=== PATIENT | male | born 1945 | race Caucasian/White ===

== ENCOUNTER → 2018-02-13 12:21 | Outpatient (CLI) | payer MEDICARE, SELFPAY ==
--- NOTE | 2018-02-13 | TOBX_PTH ---
PATIENT: AP MILNER LOC: [facility] U#:[id number] AGE/SX: 80/M ROOM: RE02/13/[address]: Dr. Amilcar Soto DDS : 1945 BED: DIS: SPEC #: [id number] RECD: 02/13/18 11:59 STATUS: ALCIRA KARAN #: [id number] ZACHARIAH: 02/13/18 00:[address]: Amilcar Soto DEPT: SURGICAL PATHOLOGY RECD BY: Mitchell Coyle ENTERED: 02/13/18 14:18 SP TYPE: TONGUE BX LINA DR: Dr. Abdulaziz Caba MD Tissues: A - Tongue, NOS B - Tongue, NOS Procedures: Surgery Specimen Level IV HEADER OPERATION: Biopsy tongue PRE-OP DIAGNOSIS: Biopsy tongue TISSUE SUBMITTED: A. Tongue biopsy #1, B. Tongue biopsy #2 MICROSCOPIC DIAGNOSIS A. Tongue lesion #1, biopsy: Consistent with squamous cell papilloma with associated hyperkeratosis, mildly inflamed. B. Tongue lesion #2, biopsy: Hyperkeratosis and mild acanthosis. No evidence of malignancy. AM:angela 02/14/18 COMMENT Case has been reviewed in consultation with Dr. Oliveira who concurs with the above diagnosis. IDC:ROLLY MICROSCOPIC DESCRIPTION Slides are reviewed. GROSS DESCRIPTION A - Received in fixative is one container labeled with the patient's name and designated tongue #1. The specimen consists of a piece of friedman mucosal tissue measuring 0.6 x 0.3 x 0.2 cm. The specimen is inked and submitted entirely in one cassette. B - Received in fixative is one container labeled with the patient's name and designated tongue #2. The specimen consists of a piece of friedman mucosal tissue measuring 0.5 x 0.5 x 0.2 cm. The specimen is inked and submitted entirely in one cassette. / ROLLY:angela 02/13/18 TC:5 CPT: 19021 x2
== END ==
PROVIDERS: Family Provider Family Medicine; PCP Family Medicine; Referring Provider Dentist Oral and Maxillofacial Surgery; Visit Provider Dentist Oral and Maxillofacial Surgery
DX: K13.21 Leukoplakia of oral mucosa, including tongue (principal)
CPT/HCPCS: 88305

== ENCOUNTER → 2018-04-17 12:11 | Outpatient (CLI) | payer MEDICARE, SELFPAY ==
[2018-04-17 14:31] LABS: ALB/GLOB Ratio 1.1 RATIO (0.9-2.4); AST(SGOT) 16 U/L (15-37); Alanine Aminotransfer ALT/SGPT 24 U/L (16-61); Alkaline Phosphatase 69 U/L (45-117); Anion Gap 8 (5-15); BUN 13 mg/dL (7-18); BUN/Creat Ratio 13.2 RATIO (10-20); Calcium,Total 9.3 mg/dL (8.5-10.1); Chloride 104 mmol/L (98-107); Creatinine, Serum 0.99 mg/dL (0.70-1.30); EST Glomerular Filtration Rate 79 mL/min (>60); Est Glom Filt Rate - Afr Amer 96 mL/min (>60); Globulin 3.5 g/dL (2.2-4.2); Glucose 147 mg/dL (74-106); PSA,Total - Annual Screen 3.58 ng/mL (0.00-4.00); Potassium 4.4 mmol/L (3.5-5.1); Protein, Total 7.5 g/dL (6.4-8.2); Sodium Level 139 mmol/L (136-145); Thyroid Stim Hormone (TSH) 1.19 uIU/mL (0.358-3.74)
--- OUTSIDE RECORDS SUMMARY | 2018-06-12 21:25 | XMS RPT_ITS ---
:1945 Author Organization [facility] Care Team Providers Name Role Phone Amilcar Soto Attending Unavailable Amilcar Soto Referring Unavailable Abdulaziz Caba Primary Care Unavailable Abdulaziz Caba Attending Unavailable Abdulaziz Caba Primary Care Unavailable PROBLEMS PROBLEMS No Problem Records FoundPROCEDURES PROCEDURES No Procedure Records FoundRESULTS RESULTS COMPREHENSIVE METABOLIC Collected: 04/17/2018 Status: F Source: [facility] 12:[address] [facility] REPOSITORY TYPE CODE TESTS RESULT OUT OF RANGE REFERENCE UNITS LAB L501.0100 74-106 mg/dL High GLU 147 Result Comment: Fasting Glucose result greater than or equal to 126 mg/dL suggests DIABETES MELLITUS per A.D.A. criteria. Please note revised GLUCOSE reference range effective 2017. LAB L501.1000 7-18 mg/dL Normal BUN 13 LAB L501.1100 0.70-1.30 mg/dL Normal CREAT,SERUM 0.99 Result Comment: The validity of the calculated GFR AND GFRAA in patients over 70 years has not been determined. Clinical correlation is essential. LAB L501.1110 >60 mL/min Normal EST GFR 79 Result Comment: Non- GFR Calc LAB L501.1115 >60 mL/min Normal EST GFR - AA 96 Result Comment: GFR Calc LAB L501.1300 10-20 RATIO Normal BUN/CRE 13.2 LAB L501.1500 6.4-8.2 g/dL T Normal PROT 7.5 LAB L501.1800 3.2-5.0 g/dL Normal ALB 4.0 LAB L501.1950 2.2-4.2 g/dL Normal GLOB 3.5 LAB L501.2000 0.9-2.4 RATIO Normal A/G 1.1 LAB L501.2200 8.5-10.1 mg/dL CA Normal 9.3 LAB L501.4100 15-37 U/L Normal AST 16 LAB L501.4305 45-117 U/L Normal ALK P 69 LAB L501.4405 16-61 U/L Normal ALT 24 LAB L501.4600 0.20-1.00 mg/dL T Normal BILI 0.90 LAB L501.5300 136-145 mmol/L NA Normal 139 LAB L501.5600 3.5-5.1 mmol/L K Normal 4.4 LAB L501.5900 98-107 mmol/L CL Normal 104 LAB L501.6100 21.0-32.0 mmol/L Normal CO2 27.0 LAB L501.6200 5-15 Normal GAP 8 Performed By: #### L500.4050, L501.9520, L501.9910 #### [facility] [address] [place], [place], [address] THYROID STIM HORMONE Collected: 04/17/2018 Status: F Source: [facility] ([facility]) 12:[address] [facility] REPOSITORY TYPE CODE TESTS RESULT OUT OF RANGE REFERENCE UNITS LAB L501.9520 0.358-3.74 uIU/mL Normal TSH 1.19 Performed By: #### L500.4050, L501.9520, L501.9910 #### [facility] [address] [place], [address] PSA,TOTAL - ANNUAL Collected: 04/17/2018 Status: F Source: [facility] SCREEN 12:[address] [facility] REPOSITORY TYPE CODE TESTS RESULT OUT OF RANGE REFERENCE UNITS LAB L501.9910 0.00-4.00 ng/mL Normal PSA,TOT 3.58 SCREEN Result Comment: This test was performed using the TPSA assay method for the [employer] chemistry system. Values obtained with different assay methods cannot be used interchangably. When changing PSA assays in the course of monitoring a patient, additional sequential testing should be carried out to confirm baseline values. Performed By: #### L500.4050, L501.9520, L501.9910 #### [facility] [address] [place], [place], [address] TONGUE BIOPSY Observed: 02/13/2018 Status: F Source: [facility] 12:[address] [facility] REPOSITORY Patient: AP MILNER : 1945 (73/M) Acct Num: [id number] Phys: Alfiewayne MARIELAS,Amilcar Unit Num: [id number] Loc: LABSPEC Specimen: [id number] Received: 02/13/18 - 1159 Spec Type: TONGUE BX TISSUES 1 TISSUES: A. Tongue, NOS B. Tongue, NOS COMMENT Case has been reviewed in consultation with Dr. Oliveira who concurs with the above diagnosis. IDC:ROLLY GROSS DESCRIPTION A - Received in fixative is one container labeled with the patient's name and designated tongue #1. The specimen consists of a piece of friedman mucosal tissue measuring 0.6 x 0.3 x 0.2 cm. The specimen is inked and submitted entirely in one cassette. B - Received in fixative is one container labeled with the patient's name and designated tongue #2. The specimen consists of a piece of friedman mucosal tissue measuring 0.5 x 0.5 x 0.2 cm. The specimen is inked and submitted entirely in one cassette. / SJ:angela 02/13/18 TC:5 CPT: 95360 x2 HEADER OPERATION: Biopsy tongue PRE-OP DIAGNOSIS: Biopsy tongue TISSUE SUBMITTED: A. Tongue biopsy #1, B. Tongue biopsy #2 MICROSCOPIC DESCRIPTION Slides are reviewed. MICROSCOPIC DIAGNOSIS A. Tongue lesion #1, biopsy: Consistent with squamous cell papilloma with associated hyperkeratosis, mildly inflamed. B. Tongue lesion #2, biopsy: Hyperkeratosis and mild acanthosis. No evidence of malignancy. AM:angela 02/14/18 Signed Xu Jessica 02/14/18 <signature on file> Performed By: #### PTOBX #### [facility] [address] [place], [address] ALLERGIES ALLERGIES No Allergies Records FoundENCOUNTERS ENCOUNTERS ADMIT/DISCHARGE ACCOUNT ADMITTING ENCOUNTER LOCATION SOURCE NUMBER CLASS 04/17/2018 [id number] Ambulatory [place] Theresa 2 [facility] ing:MFPLAB Repository 02/13/2018 [id number] Ambulatory [place] Theresa 0 [facility] ing:LABSPEC Repository PAYERS PAYERS ENCOUNTER GUARANTOR PAYER SUBSCRIBER SOURCE 04/17/2018 [facility] Primary AP Cardenas [id number] [place]: [employer] [facility] C[facility] [id number] [facility] [place] Repository [id number]: (330) Number: [phone] () [id number] Date: [place], [place] [address]EL: 04/17/2018 Secondary NOT GIVENUNK Theresa Insurance:SELF PAY [facility] Number: Effective Repository Date:2018-04-17 02/13/2018 [facility] Primary AP Cardenas [id number] Insurance:[place]: [employer] [place]URE C[id number] Repository [address]Nar: (330) Number: [phone] () [id number] Date: [place], [place] [address]EX: 02/13/2018 Secondary NOT GIVENUNK [place] Insurance:SELF PAY [facility] Number: Effective Repository Date:2018-02-13
== END ==
PROVIDERS: Family Provider Family Medicine; PCP Family Medicine; Visit Provider Family Medicine
DX: E11.9 Type 2 diabetes mellitus without complications (principal); Z12.5 Encounter for screening for malignant neoplasm of prostate
CPT/HCPCS: 36415; 80053; 84153; 84443; G0103

== ENCOUNTER → 2019-04-28 15:29 | Outpatient (CLI) | payer MEDICARE, SELFPAY ==
[2019-04-28 18:41] LABS: ALB/GLOB Ratio 1.1 RATIO (0.9-2.4); AST(SGOT) 12 U/L (15-37); Alanine Aminotransfer ALT/SGPT 24 U/L (16-61); Albumin, Serum 3.9 g/dL (3.2-5.0); Alkaline Phosphatase 71 U/L (45-117); Anion Gap 4 (5-15); BUN 12 mg/dL (7-18); Calcium,Total 8.9 mg/dL (8.5-10.1); Chloride 106 mmol/L (98-107); Creatinine, Serum 0.92 mg/dL (0.70-1.30); EST Glomerular Filtration Rate 86 mL/min (>60); Est Glom Filt Rate - Afr Amer 104 mL/min (>60); Globulin 3.5 g/dL (2.2-4.2); Glucose 118 mg/dL (74-106); PSA,Total - Annual Screen 3.97 ng/mL (0.00-4.00); Potassium 3.9 mmol/L (3.5-5.1); Protein, Total 7.4 g/dL (6.4-8.2); Sodium Level 139 mmol/L (136-145); Thyroid Stim Hormone (TSH) 1.14 uIU/mL (0.358-3.74)
== END ==
PROVIDERS: Family Provider Family Medicine; PCP Family Medicine; Visit Provider Family Medicine
DX: E11.9 Type 2 diabetes mellitus without complications (principal); Z12.5 Encounter for screening for malignant neoplasm of prostate
CPT/HCPCS: 80053; 84153; 84443; G0103

== ENCOUNTER → 2020-05-13 08:33 | Outpatient (CLI) | payer MEDICARE, SELFPAY ==
[2020-05-13 10:25] LABS: Vitamin B12 159 pg/mL (211-911)
[2020-05-13 10:34] LABS: ALB/GLOB Ratio 1.1 RATIO (0.9-2.4); AST(SGOT) 9 U/L (15-37); Alanine Aminotransfer ALT/SGPT 22 U/L (16-61); Albumin, Serum 3.9 g/dL (3.2-5.0); Alkaline Phosphatase 66 U/L (45-117); Anion Gap 5 (5-15); BUN 12 mg/dL (7-18); BUN/Creat Ratio 13.6 RATIO (10-20); Chloride 107 mmol/L (98-107); Cholesterol 163 mg/dL (200); Creatinine, Serum 0.88 mg/dL (0.70-1.30); EST Glomerular Filtration Rate 90 mL/min (>60); Est Glom Filt Rate - Afr Amer 109 mL/min (>60); Globulin 3.6 g/dL (2.2-4.2); Glucose 146 mg/dL (74-106); High Density Lipoprotein 42 mg/dL; PSA,Total - Annual Screen 3.58 ng/mL (0.00-4.00); Potassium 4.2 mmol/L (3.5-5.1); Protein, Total 7.5 g/dL (6.4-8.2); Sodium Level 139 mmol/L (136-145); Thyroid Stim Hormone (TSH) 1.72 uIU/mL (0.358-3.74); Triglycerides 119 mg/dL; Very Low Density Lipoprotein 24 mg/dL (5-40)
== END ==
PROVIDERS: PCP Family Medicine; Referring Provider Family Medicine; Visit Provider Family Medicine
DX: E11.9 Type 2 diabetes mellitus without complications (principal); Z12.5 Encounter for screening for malignant neoplasm of prostate
CPT/HCPCS: 36415; 80053; 80061; 82607; 84153; 84443; G0103

== ENCOUNTER 2021-08-08 08:51 | Outpatient (CLI) | payer MEDICARE, SELFPAY ==
[2021-08-08 10:29] LABS: ALB/GLOB Ratio 1.1 RATIO (0.9-2.4); AST(SGOT) 15 U/L (15-37); Alanine Aminotransfer ALT/SGPT 24 U/L (16-61); Alkaline Phosphatase 60 U/L (45-117); Anion Gap 7 (5-15); BUN 12 mg/dL (7-18); BUN/Creat Ratio 13.7 RATIO (10-20); Calcium,Total 8.9 mg/dL (8.5-10.1); Chloride 106 mmol/L (98-107); Cholesterol 146 mg/dL (200); Creatinine, Serum 0.87 mg/dL (0.70-1.30); EST Glomerular Filtration Rate 91 mL/min (>60); Est Glom Filt Rate - Afr Amer 110 mL/min (>60); Globulin 3.5 g/dL (2.2-4.2); Glucose 126 mg/dL (74-106); High Density Lipoprotein 39 mg/dL; PSA,Total - Annual Screen 3.42 ng/mL (0.00-4.00); Potassium 3.9 mmol/L (3.5-5.1); Protein, Total 7.5 g/dL (6.4-8.2); Sodium Level 139 mmol/L (136-145); Triglycerides 96 mg/dL; Very Low Density Lipoprotein 19 mg/dL (5-40)
[2021-08-08 17:35] LABS: Vitamin B12 451 pg/mL (211-911)
== END 2021-08-08 23:59 | disposition home or self-care (01) ==
LOC: MFPLAB 08:52
PROVIDERS: PCP Family Medicine; Referring Provider Family Medicine; Visit Provider Family Medicine
DX: E11.9 Type 2 diabetes mellitus without complications (principal); Z12.5 Encounter for screening for malignant neoplasm of prostate
CPT/HCPCS: 36415; 80053; 80061; 82607; 84153; G0103

== ENCOUNTER → 2022-08-10 | Outpatient (CLI) | payer MEDICARE, SELFPAY ==
[2022-08-10 13:00] LABS: Vitamin B12 576 pg/mL (211-911)
[2022-08-10 13:15] LABS: ALB/GLOB Ratio 1.1 RATIO (0.9-2.4); AST(SGOT) 17 U/L (15-37); Alanine Aminotransfer ALT/SGPT 23 U/L (16-61); Albumin, Serum 3.8 g/dL (3.2-5.0); Alkaline Phosphatase 59 U/L (45-117); Anion Gap 10 (5-15); BUN 17 mg/dL (7-18); BUN/Creat Ratio 19.5 RATIO (10-20); Calcium,Total 9.3 mg/dL (8.5-10.1); Chloride 106 mmol/L (98-107); Cholesterol 145 mg/dL (200); Creatinine, Serum 0.87 mg/dL (0.70-1.30); EST Glomerular Filtration Rate 90 mL/min (>60); Est Glom Filt Rate - Afr Amer 109 mL/min (>60); Globulin 3.6 g/dL (2.2-4.2); Glucose 121 mg/dL (74-106); High Density Lipoprotein 49 mg/dL; PSA,Total - Annual Screen 4.98 ng/mL (0.00-4.00); Potassium 3.8 mmol/L (3.5-5.1); Protein, Total 7.4 g/dL (6.4-8.2); Sodium Level 140 mmol/L (136-145); Thyroid Stim Hormone (TSH) 1.51 uIU/mL (0.358-3.74); Triglycerides 58 mg/dL; Very Low Density Lipoprotein 12 mg/dL (5-40)
== END | disposition home or self-care (01) ==
LOC: MFPLAB 09:22
PROVIDERS: PCP Family Medicine; Referring Provider Family Medicine; Visit Provider Family Medicine
DX: E11.319 Type 2 diabetes mellitus with unspecified diabetic retinopathy without macular edema (principal); Z12.5 Encounter for screening for malignant neoplasm of prostate
CPT/HCPCS: 36415; 80053; 80061; 82607; 84153; 84443; G0103

== ENCOUNTER → 2023-01-09 | Outpatient (CLI) | payer MEDICARE, SELFPAY ==
[2023-01-10 13:08] LABS: PSA, Free 1.06 ng/mL; PSA, Free % 23.8 % (.)
== END | disposition home or self-care (01) ==
LOC: MFPLAB 08:45
PROVIDERS: PCP Family Medicine; Visit Provider Family Medicine
DX: R97.20 Elevated prostate specific antigen [PSA] (principal)
CPT/HCPCS: 36415; 84153; 84154

== ENCOUNTER → 2023-08-21 | Outpatient (CLI) | payer MEDICARE, SELFPAY ==
[2023-08-21 13:08] LABS: Vitamin B12 514 pg/mL (211-911)
[2023-08-21 13:19] LABS: AST(SGOT) 16 U/L (15-37); Alanine Aminotransfer ALT/SGPT 24 U/L (16-61); Albumin, Serum 3.6 g/dL (3.2-5.0); Alkaline Phosphatase 63 U/L (45-117); Anion Gap 7 (5-15); BUN 13 mg/dL (7-18); Calcium,Total 9.4 mg/dL (8.5-10.1); Chloride 105 mmol/L (98-107); Cholesterol 159 mg/dL (200); Creatinine, Serum 0.93 mg/dL (0.70-1.30); EST Glomerular Filtration Rate 84 mL/min (>60); Est Glom Filt Rate - Afr Amer 101 mL/min (>60); Globulin 3.7 g/dL (2.2-4.2); Glucose 152 mg/dL (74-106); High Density Lipoprotein 45 mg/dL; PSA,Total- Diagnostic 4.39 ng/mL (0.0-4.0); Potassium 4.2 mmol/L (3.5-5.1); Protein, Total 7.3 g/dL (6.4-8.2); Sodium Level 138 mmol/L (136-145); Thyroid Stim Hormone (TSH) 1.77 uIU/mL (0.358-3.74); Triglycerides 107 mg/dL; Very Low Density Lipoprotein 21 mg/dL (5-40)
== END | disposition home or self-care (01) ==
LOC: MFPLAB 09:46
PROVIDERS: PCP Family Medicine; Visit Provider Family Medicine
DX: E11.9 Type 2 diabetes mellitus without complications (principal); R97.20 Elevated prostate specific antigen [PSA]
CPT/HCPCS: 36415; 80053; 80061; 82607; 84153; 84403; 84443

== ENCOUNTER → 2024-04-28 | Outpatient (CLI) | payer MEDICARE, SELFPAY ==
[2024-04-28 11:05] LABS: Anion Gap 5 (5-15); BUN 13 mg/dL (7-18); BUN/Creat Ratio 13.1 RATIO (10-20); Calcium,Total 9.4 mg/dL (8.5-10.1); Chloride 107 mmol/L (98-107); Cholesterol 156 mg/dL (200); Creatinine, Serum 0.99 mg/dL (0.70-1.30); EST Glomerular Filtration Rate 78 mL/min (>60); Est Glom Filt Rate - Afr Amer 94 mL/min (>60); Glucose 144 mg/dL (74-106); High Density Lipoprotein 44 mg/dL; PSA,Total- Diagnostic 4.37 ng/mL (0.0-4.0); Potassium 3.8 mmol/L (3.5-5.1); Sodium Level 139 mmol/L (136-145); Triglycerides 149 mg/dL; Very Low Density Lipoprotein 30 mg/dL (5-40)
== END | disposition home or self-care (01) ==
LOC: MFPLAB 08:32
PROVIDERS: PCP Family Medicine; Referring Provider Family Medicine; Visit Provider Family Medicine
DX: E11.9 Type 2 diabetes mellitus without complications (principal); R97.20 Elevated prostate specific antigen [PSA]
CPT/HCPCS: 36415; 80048; 80061; 84153

== ENCOUNTER → 2024-09-10 | Outpatient (CLI) | payer MEDICARE, SELFPAY ==
[2024-09-10 20:53] LABS: Microalbumin,Random Urine < 12.0 mg/L (NO RANGE EST.); Microalbumin:Creatinine Ratio UNABLE TO CALCULATE mg/g CRE
--- OUTSIDE RECORDS SUMMARY | 2025-04-01 16:49 | XMS RPT_ITS | CCD ---
Author Organization [facility] Care Team Providers Care Safety Compliance Specialist Name Role Phone Abdulaziz Caba MD Primary Care Provider Abdulaziz Caba Attending Unavailable Abdulaziz Caba Referring Unavailable Abdulaziz Caba Primary Care Unavailable Abdulaziz Caba Attending Unavailable Abdulaziz Caba Referring Unavailable Abdulaziz Caba Primary Care Unavailable Allergies Allergy Classification Reported Allergen(s) Allergy Type Date of Onset Reaction(s) Facility (2 sources) Seasonal allergy Allergy to substance Other: See Comments [place] years has not been determined. Clinical correlation is essential. Serum or plasma thyroid stim ulating hormone (TSH) measurement (units/volume)Ordered By: Abdulaziz Caba on 08-21-2023 TSH Qn 1.77 uIU/mL 0.358-3.74 [facility] Serum or plasma urea nitroge n measurement (mass/volume)Ordered By: Abdulaziz Caba on 08-21-2023 Urea nitrogen [Mass/Vol] 13 mg/dL 7-18 [facility] Thin prep Papanicolaou smear with manual screeningOrdered By: Abdulaziz Caba on 08-21-2023 Thin prep Papanicolaou smear with manual screening 3.6 g/dL 3.2-5.0 [facility] Thin prep Papanicolaou smear with manual screening 16 U/L 15-37 [facility] Thin prep Papanicolaou smear with manual screening 7 5-15 [facility] No Panel InformationOrdered By: Rob Caba on 01-09-2023 Percent Free Prostate Specific Ag 1.06 ng/mL N/A [facility] Comment on above: Cecilia ECLIA methodol ogy. Prostate Specific Ag, Ultra-Sensitv 4.460 ng/mL 0.000-4.000 [facility] Comment on above: Cecilia ECLIA methodol ogy.According to the [place] [employer], Serum PSAshould decrease and remain at undetectable levels afterradical prostatectomy. The AUA defines biochemicalrecurrence as an initial PSA value 0.200 ng/mL or greaterfollowed by a subsequent confirmatory PSA value 0.200 ng/mLor greater. Values obtained with different assay methods orkits cannot be used interchangeably. Results cannot beinterpreted as absolute evidence of the presence or absenceof malignant disease. Serum or plasma free prostat e specific antigen/total prostate specific antigen ratioOrdered By: Rob Caba on 01-09-2023 Free PSA/Total PSA [Mass fraction] 23.8 % . [facility] Comment on above: The table below list s the probability of prostate cancer formen with non-suspicious JOSHUA results and total PSA between4 and 10 ng/mL, by patient age (Bud et al, PATSY 1998,279:1542). % Free PSA 50-64 yr 65-75 yr 0.00-10.00% 56% 55% 10.01-15.00% 24% 35% 15.01-20.00% 17% 23% 20.01-25.00% 10% 20% >25.00% 5% 9%Please note: Bud et al did not make specific recommendations regarding the use of percent free PSA for any other population of men.Performed at: [facility] [id number] Director: Amilcar Foster PhD, Phone: [phone] Basophil percentageOrdered B y: Dr. Caba on 08-10-2022 Bilirubin [Mass/Vol] 0.50 mg/dL 0.20-1.00 [facility] Comment on above: For patients on eltr ombopag therapy, use of Dimension [place] TBIL is not recommended. Chloride [Moles/Vol] 106 mmol/L 98-107 [facility] Cholesterol [Mass/Vol] 145 mg/dL <200 [facility] Comment on above: <200 mg/dL Desirable 200-240 mg/dL Borderline >240 mg/dL High Risk Glucose [Mass/Vol] 121 mg/dL 74-106 [facility] Comment on above: Fasting Glucose resu lt from 100 to 125 mg/dL suggests IMPAIRED HOMEOSTASIS per A.D.A. criteria. Potassium [Moles/Vol] 3.8 mmol/L 3.5-5.[address] [facility] Protein [Mass/Vol] 7.4 g/dL 6.4-8.2 [facility] Sodium [Moles/Vol] 140 mmol/L 136-145 [facility] Triglyceride [Mass/Vol] 58 mg/dL <199 [facility] Comment on above: The drugs N-Acetylcy steine and Metamizole may falsely depress this assay.Serum Triglycerides Reference Interval Normal <150 mg/dL Borderline high 150 - 199 mg/dL High 200 - 499 mg/dL Very High > or = 500 mg/dL Laboratory - Chemistry and C hemistry - challengeOrdered By: Dr. Caba on 08-10-2022 ALP [Catalytic activity/Vol] 59 U/L 45-117 [facility] ALT [Catalytic activity/Vol] 23 U/L 16-61 [facility] CO2 [Moles/Vol] 24.0 mmol/L 21.0-32.0 [facility] Cobalamin (Vitamin B12) [Mass/Vol] 576 pg/mL 211-911 [facility] Globulin (S) [Mass/Vol] 3.6 g/dL 2.2-4.2 [facility] Urea nitrogen/Creatinine [Mass ratio] 19.5 mg/mg 10-20 [facility] No Panel InformationOrdered By: Dr. Caba on 08-10-2022 Estimated GFR (MDRD) Amer 109 mL/min >60 [facility] Comment on above: GFR Calc Estimated GFR (MDRD) Non-Af Amer 90 mL/min >60 [facility] Comment on above: Non- GFR Calc Prostate Specific Antigen Screen 4.98 ng/mL 0.00-4.00 [facility] Comment on above: This test was perfor med using the TPSA assay method for the[facility] chemistry system. Values obtained with differentassay methods cannot be used interchangably.When changing PSA assays in the course of monitoring apatient, additional sequential testing should be carriedout to confirm baseline values. Thyroid Stimulating Hormone (TSH) 1.51 uIU/mL 0.358-3.74 [facility] Serum or plasma albumin bethanie urement (mass/volume)Ordered By: Dr. Caba on 08-10-2022 Albumin [Mass/Vol] 3.8 g/dL 3.2-5.0 [facility] Serum or plasma albumin/glob ulin mass ratioOrdered By: Dr. Caba on 08-10-2022 Albumin/Globulin [Mass ratio] 1.1 {ratio} 0.9-2.4 [facility] Serum or plasma calcium bethanie urement (mass/volume)Ordered By: Dr. Caba on 08-10-2022 Calcium [Mass/Vol] 9.3 mg/dL 8.5-10.1 [facility] Serum or plasma cholesterol in HDL measurement (mass/volume)Ordered By: Dr. Caba on 08-10-2022 Cholesterol in HDL [Mass/Vol] 49 mg/dL >40 [facility] Comment on above: The drugs N-Acetylcy steine and Metamizole may falsely depress this assay. Reference Range HDL <40 mg/dL Low HDL Cholesterol HDL >or= 60 mg/dL High HDL Cholesterol Serum or plasma cholesterol in VLDL measurement (mass/volume)Ordered By: Dr. Caba on 08-10-2022 Cholesterol in VLDL [Mass/Vol] 12 mg/dL 5-40 [facility] Serum or plasma creatinine m easurement (mass/volume)Ordered By: Dr. Caba on 08-10-2022 Creatinine [Mass/Vol] 0.87 mg/dL 0.70-1.[address] [facility] Comment on above: The validity of the calculated GFR & GFRAA in patients over 70 years has not been determined. Clinical correlation is essential. Serum or plasma low density lipoprotein (LDL) cholesterol measurement (mass/volume)Ordered By: Dr. Caba on 08-10-2022 Cholesterol in LDL [Mass/Vol] 84 mg/dL 0-130 [facility] Serum or plasma urea nitroge n measurement (mass/volume)Ordered By: Dr. Caba on 08-10-2022 Urea nitrogen [Mass/Vol] 17 mg/dL 7-18 [facility] Thin prep Papanicolaou smear with manual screeningOrdered By: Dr. Caba on 08-10-2022 Thin prep Papanicolaou smear with manual screening 17 U/L 15-37 [facility] Thin prep Papanicolaou smear with manual screening 10 5-15 [facility] CNOVon 11-01-2021 CNOV Office Visit (GENSWS ) -------- BENOIT WEBER ([id number]) 1945 M Date Time Provider Department 11/01/21 10:00 AM BOBBI GEORGE During your visit today, we recorded the following information about you: Temperature Pulse Blood pressure Weight 98.1 degrees 83/minute 132/72 78 kg Height 1.651 m Bobbi George PA-C 11/01/2021 11:05 AM Signed FOLLOW UP VISIT - ENDOSCOPY NAME: Benoit Weber CLINIC NO.: [id number] DATE OF SERVICE: 11/01/2021 : 1945 REFERRING PHYSICIAN: Abdulaziz Caba MD Benoit is a patient I am following for screening colonoscopy and recent loose stools. Dr. Sheikh performed lower endoscopy on 10/25/21. The patient was found to have diverticulosis with otherwise normal-appearing colon. Random biopsies were taken. Pathology demonstrated: FINAL DIAGNOSIS A. Ascending colon, biopsy: - No significant pathologic change. - No evidence of lymphocytic or collagenous colitis. ? B. Descending colon, biopsy: - No significant pathologic change. - No evidence of lymphocytic or collagenous colitis. ? JRG/kr 10/26/2021 The patient notes no complaints since the procedure. He states the loose stools are intermittent and primarily aggravated with certain foods such as dairy and salads. States symptoms are not really bothering him currently and had normal BM this morning. VITALS: Blood pressure 132/72, pulse 83, temperature 36.7 ?C (98.1 ?F), height 165.1 cm (5' 5), weight 78 kg (172 lb), SpO2 98 %. General: patient is alert, cooperative, pleasant and in no acute distress On examination, the abdomen is benign. Assessment IMPRESSION: s/p colonoscopy, intermittent loose stools, normal biopsies PLAN: The operative findings and pathology report were reviewed with the patient, and the patient has had the opportunity to ask questions and have questions answered. If the patient notes any problems or changes in bowel function, the patient should contact me immediately. Otherwise I recommend follow up endoscopy in 10 years. HM updated and recall letter generated. Patient verbalized understanding of all above and agreed with the plan Diagnoses: (K57.90) Diverticulosis (primary encounter diagnosis) (R19.5) Loose stools I spent a total of 23 minutes on the date of the service which included preparing to see the patient, [id number] patient care, completing clinical documentation, obtaining and/or reviewing separately obtained history, performing a medically appropriate examination, independently interpreting results (not separately reported) and communicating results to the patient/family/caregiver . ___ BURT Chen PA-C 11/01/2021 10:27 AM Signed -Your random biopsies returned as normal colon tissue, no evidence of colitis -Recommend fiber and probiotic to help regulate stools -Follow up if symptoms worsen or persist The following instructions are important for you related to your office visit today with the [facility]. INSTRUCTIONS FOR DIVERTICULA I recommend that you continue on a high-fiber diet. Avoidance of seeds is not necessary in general. Recent studies have demonstrated that seeds do not increase you risk of developing diverticulitis. If specific foods tend to cause discomfort, those should be avoided. Signs of diverticulitis (inflammation of diverticulosis) include - abdominal distention, fever, abdominal pain typically in the left lower quadrant, and changes of bowel habits. If these symptoms appear, you are instructed to contact our office immediately. If you note any additional difficulties or concerns, you should contact our office immediately. If you note any additional difficulties, questions, or concerns, you should contact our office immediately @ [phone] and ask to be transferred to the General Surgery department. Referring Provider: JOSE SHEIKH [[id number]] Allergies As of Date: 11/01/2021 Noted Allergy Reaction SEASONAL ALLERGIES 10/14/2021 14 - Other: See Comments Date Reviewed: 11/01/2021 Reviewed by: Stacy Alexandre LPN - Fully Assessed Reason for Visit: Follow Up [171] Cmt: colonoscopy Primary Visit Diagnosis:Diverticulosis [K57.90] Other Visit Diagnosis:Loose stools [R19.5] Prescriptions as of 11/01/2021 - metFORMIN ER (FORTAMET) 1,000 mg 24 hr tablet Take 1,000 mg by mouth twice daily before meals. Metformin not ER - glimepiride (AMARYL) 4 mg tablet Take 4 mg by mouth twice daily with meals. - betamethasone dipropionate (DIPROSONE) 0.05 % cream Apply to affected area as needed. - Fluorouracil 0.5 % cream Apply to affected area as needed. - VITAMIN E ACETATE ORAL Take 1 capsule by mouth twice daily. - cyanocobalamin (VITAMIN B-12) 1,000 mcg tab Take 1,000 mcg by mouth once daily. - ascorbic acid, vitamin C, (VITAMIN C) 500 mg tablet Edson (more content not included)... Normal [facility] COLONOSCOPY SCREENINGon [facility] GLUCOSE, BLOOD (POC)on 10-25 Glucose [Mass/Vol] 177 mg/dL Abnormal 74 - 99 mg/dL [facility] HISTORY PHYSICALon HISTORY PHYSICAL HNO ID: [id number] Author: Jose Sheikh MD Service: General Surgery Author Type: Physician Type: HANDP Filed: 10/25/2021 11:15 AM Note Text: PROCEDURAL SEDATION HISTORY AND PHYSICAL EXAM SERVICE DATE: 10/25/2021 SERVICE TIME: 11:14 AM Subjective HPI: This is a 76 year old male who presents for screening colonoscopy - HE now notes diarrhea/loose stools 4-5 times a week. His colonoscopy was normal in 2011 PAST ANESTHESIA HISTORY: No history of adverse event PAST MEDICAL HISTORY Diagnosis Date - Arthritis - Diabetes mellitus Type 2 - Diabetic retinopathy (HCC) - Hypercholesterolemia - Hypertension - Nummular eczema PAST SURGICAL HISTORY Procedure Laterality Date - COLONOSCOPY FLX DX W/COLLJ SPEC WHEN PFRMD 09/05/2011 normal 10 year follow up - EYE SURGERY HX - FOREIGN BODY - EYE - PERIODONTAL MAINTENANCE - REMV CATARACT EXTRACAP,INSERT LENS Right 2016 Prior to Admission medications as of 10/25/21 0949 Medication Sig Last Dose Taking metFORMIN ER (FORTAMET) 1,000 mg 24 hr tablet Take 1,000 mg by mouth twice daily before meals. 10/24/2021 at Unknown time Yes glimepiride (AMARYL) 4 mg tablet Take 4 mg by mouth twice daily with meals. 10/24/2021 at Unknown time Yes betamethasone dipropionate (DIPROSONE) 0.05 % cream Apply to affected area as needed. 10/02/2021 Fluorouracil 0.5 % cream Apply to affected area as needed. Unknown at Unknown time VITAMIN E ACETATE ORAL Take 1 capsule by mouth twice daily. 10/02/2021 cyanocobalamin (VITAMIN B-12) 1,000 mcg tab Take 1,000 mcg by mouth once daily. 10/20/2021 ascorbic acid, vitamin C, (VITAMIN C) 500 mg tablet Take 500 mg by mouth once daily. 10/20/2021 amLODIPine (NORVASC) 5 mg ORAL tablet Take 1 tablet by mouth once daily. metFORMIN 500 mg ORAL tablet Take 1 tablet by mouth twice daily. glimepiride (AMARYL) 4 mg ORAL tablet Take 1 tablet by mouth once daily. rosuvastatin (CRESTOR) 5 mg ORAL tablet Take 1 tablet by mouth daily at bedtime. aspirin, enteric coated 325 mg ORAL EC tablet Take 1 tablet by mouth once daily. ALLERGIES Allergen Reactions - Seasonal Allergies Other: See Comments Objective PHYSICAL EXAM: GENERAL: Alert, no distress, cooperative EYES: PERRLA, EOMI OROPHARYNX: Lips, mucosa, and tongue normal. Teeth and gums normal. Oropharynx normal. ABDOMEN: Abdomen soft, non-tender, BS normal, No masses or organomegaly AIRWAY: Airway Visualization of Uvula: Yes Mouth opening greater than 2 fingerbreadths: Yes Neck Full Range of Motion: Yes LUNGS: Lungs clear to auscultation CARDIAC: Regular rhythm,Regular rate Assessment/Plan ASA Class: ASA Class:: Patient with mild systemic disease Active Problems: * No active hospital problems. * Resolved Problems: * No resolved hospital problems. * Medication and Non-Pharmacologic VTE Prophylaxis/Anticoagulan ts VTE Prophylaxis: VTE prophylaxis appropriate Provisional Diagnosis/Treatment Plan: SEDATION GOAL: Moderate SIGNATURE: Jose Sheikh MD PATIENT NAME: Benoit Weber DATE: October 25, 2021 TIME: 11:14 AM Normal [facility] SURGICAL PATHOLOGYon 022 CASE REPORT Normal [facility] Comment on above: Order Comment: Speci men Type: TISSUE SPECIMEN Ordering Facility: [facility] Address: [address] [place] [address] Result Comment: Surg ica Pathology Report Case: [id number] Authorizing Provider: Jose Sheikh MD Collected: 10/25/2021 11:45 AM Ordering Location: Ambulatory Surgery Received: 10/25/2021 02:14 PM Pathologist: Waldemar Huerta MD Specimens: A) - ASCENDING COLON BIOPSY, RANDOM Acending Colon Bx's x3 B) - DESCENDING COLON BIOPSY, RANDOM decending colon bx x3 Performed By: #### S #### [facility] CLIA [id number] [address] [place] [address] OF [place] FINAL DIAGNOSIS Normal [facility] Comment on above: Order Comment: Speci men Type: TISSUE SPECIMEN Ordering Facility: [facility] Address: [address] [place] [address] Result Comment: A. A scending colon, biopsy: - No significant pathologic change. - No evidence of lymphocytic or collagenous colitis. B. Descending colon, biopsy: - No significant pathologic change. - No evidence of lymphocytic or collagenous colitis. JRG/beckie 10/26/2021 Performed By: #### S #### [facility] CLIA [id number] [address] [place] [address] [place] FINAL PERFORMING LAB Normal [facility] Comment on above: Order Comment: Speci men Type: TISSUE SPECIMEN Ordering Facility: [facility] Address: [address] [place] [address] Result Comment: Diag nostic interpretation performed at [facility], [address] [place] [address] CLIA# [id number] Physical Medicine Teacher: Ab Bajwa M.D. Performed By: #### S #### [facility] CLIA [id number] [address] [place] [address] [place] GROSS DESCRIPTION Normal [facility] Comment on above: Order Comment: Speci men Type: TISSUE SPECIMEN Ordering Facility: [facility] [place] [address] Result Comment: A. A SCENDING COLON BIOPSY. Received in formalin are multiple pieces of friedman, soft tissue aggregating to 1.5 x 0.3 x 0.2 cm. Totally submitted in one cassette. B. DESCENDING COLON BIOPSY. Received in formalin are multiple pieces of friedman, soft tissue aggregating to 1.2 x 0.2 x 0.2 cm. Totally submitted in one cassette. Gross examination performed at [facility], [address] [place] [address], [place] [id number] TTN 10/25/2021 10:40 PM Performed By: #### S #### [facility] CLIA [id number] [address] [place] [address] [place]K [id number] [id number] [facility] CNPNon 08-19-2021 CNPN Telephone (GENSWS) -------- BENOIT WEBER ([id number]) 1945 M Date Time Provider Department 08/19/21 JOSE SHEIKH During your visit today, we recorded the following information about you: Vidhya Brown 08/23/2021 1:41 PM Addendum 10/25/2021 COLON ASC Florencio Called patient to schedule colonoscopy with Dr. Sheikh per Dr. Caba referral in scanned documents. LV to give our office a call back. Florencio is booking until the end of September beginning of October. Last colon was 08/2011 with Florencio Brown 08/23/2021 1:42 PM Signed Patient would like prep Golytley sent to the [facility] pharmacy in [facility] 10/14/2021 10:[address] Sheikh , PANTERA for open access. Please see referral in scanned documents with Dr Sheikh's permission for open access Igor Diaz Allergies As of Date: 08/19/2021 (No Known Allergies) Date Reviewed: 09/18/2011 Reviewed by: Tana Raygoza Rn - Fully Assessed Reason for Visit: 10/25/2021 COLON ASC [Other] Primary Visit Diagnosis:Screening for colon cancer [Z12.11] Order(s):COLONOSCOPY SCREENING [GI51] Order #: [id number] FUTURE [] peg 3350-Electrolytes (GOLYTELY) 236-22.74-6.74 -5.86 gram suspensionTake 4,000 mL by mouth one time only for 1 dose.Disp: 1 EachRfl: 0 Prescriptions as of 10/14/2021 - amLODIPine (NORVASC) 5 mg ORAL tablet Take 1 tablet by mouth once daily. - metFORMIN 500 mg ORAL tablet Take 1 tablet by mouth twice daily. - glimepiride (AMARYL) 4 mg ORAL tablet Take 1 tablet by mouth once daily. - rosuvastatin (CRESTOR) 5 mg ORAL tablet Take 1 tablet by mouth daily at bedtime. - aspirin, enteric coated 325 mg ORAL EC tablet Take 1 tablet by mouth once daily. Problem List As Of Date 08/19/2021 Noted Resolved Special screening for malignant neoplasms, colo*07/24/2011 Unspecified constipation [K59.00] 07/24/2011 Prescriptions ordered this encounter Disp Refills Start End PEG 3350-ELECTROLYTES 236 GRAM-22.74* 1 Ea* 0 08/24/2021 08/24/2021 Route: ORAL Sig: Take 4,000 mL by mouth one time only for 1 dose. Encounter Status:Closed by JOSE SHEIKH on 08/24/21 [facility] Basophil percentageon 2021 Bilirubin [Mass/Vol] 0.50 mg/dL 0.20-1.00 [facility] Work Phone: Comment on above: For patients on eltr ombopag therapy, use of Dimension [place] TBIL is not recommended. Chloride [Moles/Vol] 106 mmol/L 98-107 [facility] Work Phone: Cholesterol [Mass/Vol] 146 mg/dL <200 [facility] Work Phone: [phone] Comment on above: <200 mg/dL Desirable 200-240 mg/dL Borderline >240 mg/dL High Risk Glucose [Mass/Vol] 126 mg/dL 74-106 [facility] Work Phone: [phone] Comment on above: Fasting Glucose resu lt greater than or equal to 126 mg/dL suggests DIABETES MELLITUS per A.D.A. criteria. Potassium [Moles/Vol] 3.9 mmol/L 3.5-5.[address] [facility] Work Phone: [phone] Protein [Mass/Vol] 7.5 g/dL 6.4-8.2 [facility] Work Phone: [phone] Sodium [Moles/Vol] 139 mmol/L 136-145 [facility] Work Phone: [phone] Triglyceride [Mass/Vol] 96 mg/dL [facility] Work Phone: [phone] Comment on above: The drugs N-Acetylcy steine and Metamizole may falsely depress this assay.Serum Triglycerides Reference Interval Normal <150 mg/dL Borderline high 150 - 199 mg/dL High 200 - 499 mg/dL Very High > or = 500 mg/dL Laboratory - Chemistry and C hemistry - challengeon 08-08-2021 ALP [Catalytic activity/Vol] 60 U/L 45-117 [facility] Work Phone: [phone] ALT [Catalytic activity/Vol] 24 U/L 16-61 [facility] Work Phone: [phone] CO2 [Moles/Vol] 26.0 mmol/L 21.0-32.0 [facility] Work Phone: [phone] Cobalamin (Vitamin B12) [Mass/Vol] 451 pg/mL 211-911 [facility] Work Phone: [phone] Globulin (S) [Mass/Vol] 3.5 g/dL 2.2-4.2 [facility] Work Phone: [phone] Urea nitrogen/Creatinine [Mass ratio] 13.7 mg/mg 10-20 [facility] Work Phone: [phone] No Panel Informationon 08-08 Estimated GFR (MDRD) Amer 110 mL/min >60 [facility] Work Phone: Comment on above: GFR Calc Estimated GFR (MDRD) Non-Af Amer 91 mL/min >60 [facility] Work Phone: Comment on above: Non- GFR Calc Prostate Specific Antigen Screen 3.42 ng/mL 0.00-4.00 [facility] Work Phone: Comment on above: This test was perfor med using the TPSA assay method for [employer] chemistry system. Values obtained with differentassay methods cannot be used interchangably.When changing PSA assays in the course of monitoring apatient, additional sequential testing should be carriedout to confirm baseline values. Serum or plasma albumin bethanie urement (mass/volume)on 08-08-2021 Albumin [Mass/Vol] 4.0 g/dL 3.2-5.0 [facility] Work Phone: Serum or plasma albumin/glob ulin mass ratioon 08-08-2021 Albumin/Globulin [Mass ratio] 1.1 {ratio} 0.9-2.4 [facility] Work Phone: Serum or plasma calcium bethanie urement (mass/volume)on 08-08-2021 Calcium [Mass/Vol] 8.9 mg/dL 8.5-10.1 [facility] Work Phone: Serum or plasma cholesterol in HDL measurement (mass/volume)on 08-08-2021 Cholesterol in HDL [Mass/Vol] 39 mg/dL [facility] Work Phone: Comment on above: The drugs N-Acetylcy steine and Metamizole may falsely depress this assay. Reference Range HDL <40 mg/dL Low HDL Cholesterol HDL >or= 60 mg/dL High HDL Cholesterol Serum or plasma cholesterol in VLDL measurement (mass/volume)on 08-08-2021 Cholesterol in VLDL [Mass/Vol] 19 mg/dL 5-40 [facility] Work Phone: [phone] Serum or plasma creatinine m easurement (mass/volume)on 03-21-2022 Creatinine [Mass/Vol] 0.87 mg/dL 0.70-1.[address] [facility] Work Phone: Comment on above: The validity of the calculated GFR & GFRAA in patients over 70 years has not been determined. Clinical correlation is essential. Serum or plasma low density lipoprotein (LDL) cholesterol measurement (mass/volume)on 08-08-2021 Cholesterol in LDL [Mass/Vol] 88 mg/dL 0-130 [facility] Work Phone: Serum or plasma urea nitroge n measurement (mass/volume)on 08-08-2021 Urea nitrogen [Mass/Vol] 12 mg/dL 7-18 [facility] Work Phone: Thin prep Papanicolaou smear with manual screeningon 08-08-2021 Thin prep Papanicolaou smear with manual screening 15 U/L 15-37 [facility] Work Phone: Thin prep Papanicolaou smear with manual screening 7 5-15 [facility] Work Phone: Vital Signs Date Time Vital Sign Value Performing Clinician Teresai tejaly 11-01-2021 10:12-0400 Body height 165.1 cm Bobbi [employer] Work Phone: [facility] 11-01-2021 10:12-0400 Body temperature 98.1 [degF] Bobbi Bar Saint PA-C Work Phone: [facility] 11-01-2021 10:12-0400 Body weight 78.02 kg Bobbi Ariel PA-C Work Phone: [facility] 11-01-2021 10:12-0400 Diastolic blood pressure 72 mm[Hg] Bobbi Ariel PA-C Work Phone: [facility] 11-01-2021 10:12-0400 Heart rate 83 /min Bobbi [place] PA-C Work Phone: [facility] 11-01-2021 10:12-0400 SaO2% (BldA) [Mass fraction] 98 % Bobbi Ariel PA-C Work Phone: [facility] 11-01-2021 10:12-0400 Systolic blood pressure 132 mm[Hg] Bobbi George PA-C Work Phone: [facility] 10-25-2021 12:15-0400 Diastolic blood pressure 76 mm[Hg] Jose Sheikh MD Work Phone: [facility] 10-25-2021 12:15-0400 Heart rate 69 /min Jose Sheikh MD Work Phone: [facility] 10-25-2021 12:15-0400 Respiratory rate 16 /min Jose Sheikh MD Work Phone: [facility] 10-25-2021 12:15-0400 SaO2% (BldA) [Mass fraction] 96 % Jose Sheikh MD Work Phone: [facility] 10-25-2021 12:15-0400 Systolic blood pressure 129 mm[Hg] Jose Sheikh MD Work Phone: [facility] 10-25-2021 10:27-0400 Body temperature 97.3 [degF] Jose Sheikh MD Work Phone: [facility] 10-25-2021 10:27-0400 Body weight 86.4 kg Jose Sheikh MD Work Phone: [facility] Encounters Encounter Date Encounter Type Care Provider Facility Start: 10-21-2024 Encounter for genera l adult medical examination without abnormal findings Abdulaziz Caba [facility] Start: 09-10-2024 ambulatory Abdulaziz Caba Faci lity:[facility] Start: 04-28-2024 End: 04-28-2024 ambulatory Abdulaziz Caba Facility:[facility] Start: 08-21-2023 End: 08-21-2023 ambulatory [facility] Work Phone: Start: 08-21-2023 End: 08-21-2023 Patient encounter procedure [facility] Start: 01-09-2023 End: 01-09-2023 ambulatory [facility] Work Phone: Start: 01-09-2023 End: 01-09-2023 Patient encounter procedure [facility] Start: 08-10-2022 End: 08-10-2022 ambulatory [facility] Work Phone: Start: 08-10-2022 End: 08-10-2022 Patient encounter procedure [facility] Start: 11-01-2021 End: 11-01-2021 Patient encounter procedure Bobbi George PA-C Work Phone: General Surgery Comment on above: Diverticulosis (Prim vini Dx); Loose stools Start: 10-25-2021 End: 10-25-2021 Subsequent hospital visit by physician Jose Sheikh MD Work Phone: Ambulatory Surgery Comment on above: Screening for colon cancer [Z12.11] Start: 08-19-2021 Telephone encounter Jose Sheikh MD Work Phone: General Surgery Comment on above: 10/25/2021 [facility] Start: 08-08-2021 End: 08-08-2021 Patient encounter procedure [facility] Procedures Date Procedure Procedure Detail Performing Clinician Start: 10-25-2021 Colon ca scrn not hi rsk ind Jose Sheikh MD Work Phone: Start: 10-25-2021 Gluc bld gluc mntr d ev cleared fda spec home use Jose Sheikh MD Work Phone: Start: 10-25-2021 Colonoscopy Jose foster MD Work Phone: Start: 09-05-2011 Colonoscopy Jose foster MD Work Phone: Plan of Treatment Date Care Activity Detail Author Start: 10-26-2031 Colonoscopy COLONOSCOPY [facility] Start: 10-26-2031 COLORECTAL CANCER SCREENING COLORECTAL CANCER SCREENING [facility] Start: 01-19-2022 Influenza vaccination INFLUENZ A (Season Ended) [facility] Start: 09-04-2021 Colonoscopy COLONOSCOPY [facility] Start: 09-04-2021 COLORECTAL CANCER SCREENING COLORECTAL CANCER SCREENING [facility] Start: 05-21-2021 ADVANCE DIRECTIVE DISCUSSION ADVANCE DIRECTIVE DISCUSSION [facility] Start: 01-17-2012 PNEUMOCOCCAL: 65+ (1 - PCV) PNEUMOCOCCAL: 65+ (1 - PCV) [facility] Start: 01-17-2012 PNEUMOVAX AGE 65 AND OVER WITH 5YR LOOKBACK (#1) PNEUMOVAX AGE 65 AND OVER WITH 5YR LOOKBACK (#1) [facility] Start: 1997 SHINGRIX VACCINE (1 of 2) SHINGRIX VACCINE (1 of 2) [facility] Start: 01-17-1992 COLOGUARD (FIT-DNA) COLOGUARD (FIT-D NA) [facility] Start: 01-17-[address] COLONOGRAPHY [facility] Start: 01-17-1992 DIABETES SCREEN DIABETES SCREEN [facility] Start: 01-17-1992 FECAL OCCULT BLOOD FECAL OCCULT BLOO D [facility] Start: 01-17-1992 SIGMOIDOSCOPY SIGMOIDOSCOPY [facility] Start: 1982 LIPID SCREEN LIPID SCREEN [facility] Start: 1966 Urine microalbumin profile DTAP,TDAP,TD (1 - Tdap) [facility] Start: 1965 HEPATITIS C SCREENING HEPATITIS C SC REENING [facility] Start: 1959 Adult depression screening assessment DEPRESSION SCREENING [facility] Start: 01-17-1952 COVID-19 VACCINE (#1) COVID-19 VACCI NE (#1) [facility] Start: 01-17-1952 COVID-19 VACCINE (1) COVID-19 VACCIN E (1) [facility] End: 08-19-2022 Screening colonoscopy COLONOSCOPY SCREENING Endoscopy Routine Screening for colon cancer 1 Occurrences starting 08/24/2021 until 08/19/2022 [facility] Work Phone: Comment on above: 1 Occurrences starti ng 08/24/2021 until 08/19/2022 SURGICAL PATHOLOGY [facility] Work Phone: Comment on above: Release Upon Amein g for 1 Occurrences starting 10/25/2021[facility] Payers Date Payer Category Payer Medicare [id number] 2024 Self-pay [id number] 2015 Medicare [id number] 2014 Medicare [employer] [place] [id number] 2014-Present [phone] [address] [place] [address] O [id number] Unknown [id number] Unknown [id number] Social History Date Type Detail Facility Tobacco smoking stat [facility] Unknown if ever smoked [facility] Work Phone: Start: 1945 Sex Assigned At Male C [facility] Start: 07-24-2011 Tobacco smoking stat [facility] Never smoked tobacco [facility] Start: 09-05-2011 End: 11-01-2021 Alcohol intake Current non-drinker of alcohol (finding) [facility] Start: 1945 Sex Assigned At Not on file C [facility] Start: 07-24-2011 Tobacco use and exposure Smokeless tobacco non-user [facility] Start: 10-15-2021 End: 11-01-2021 Exposure to SARS-CoV-2 (event) Not sure [facility] Work Phone: Clinical Notes 08-23-2021 to 11-01-2021 Patient InstructionsBobbi George PA-C - 11/01/2021 10:07 AM Pauline Mcleod RN - 10/25/2021 11:55 AM Kamala Sheikh MD - 10/25/2021 10:30 AM EDT Note Date & Type Note Facility 11-01-2021 Note HNO ID: [id number] Author: Bobbi George PA-C Service: ? Author Type: Physician Academic Specialist Type: Progress Notes Filed: 11/01/2021 11:05 AM Note Text: FOLLOW UP VISIT - ENDOSCOPY NAME: Benoit Weber [facility] NO.: [id number] DATE OF SERVICE: 11/01/2021 : 1945 REFERRING PHYSICIAN: Abdulaziz Caba MD Benoit is a patient I am following for screening colonoscopy and recent loose stools. Dr. Sheikh performed lower endoscopy on 10/25/21. The patient was found to have diverticulosis with otherwise normal-appearing colon. Random biopsies were taken. Pathology demonstrated: FINAL DIAGNOSIS A. Ascending colon, biopsy: - No significant pathologic change. - No evidence of lymphocytic or collagenous colitis. ? B. Descending colon, biopsy: - No significant pathologic change. - No evidence of lymphocytic or collagenous colitis. ? JRG/kr 10/26/2021 The patient notes no complaints since the procedure. He states the loose stools are intermittent and primarily aggravated with certain foods such as dairy and salads. States symptoms are not really bothering him currently and had normal BM this morning. VITALS: Blood pressure 132/72, pulse 83, temperature 36.7 ?C (98.1 ?F), height 165.1 cm (5' 5), weight 78 kg (172 lb), SpO2 98 %. General: patient is alert, cooperative, pleasant and in no acute distress On examination, the abdomen is benign. Assessment IMPRESSION: s/p colonoscopy, intermittent loose stools, normal biopsies PLAN: The operative findings and pathology report were reviewed with the patient, and the patient has had the opportunity to ask questions and have questions answered. If the patient notes any problems or changes in bowel function, the patient should contact me immediately. Otherwise I recommend follow up endoscopy in 10 years. updated and recall letter generated. Patient verbalized understanding of all above and agreed with the plan Diagnoses: (K57.90) Diverticulosis (primary encounter diagnosis) (R19.5) Loose stools I spent a total of 23 minutes on the date of the service which included preparing to see the patient, [id number] patient care, completing clinical documentation, obtaining and/or reviewing separately obtained history, performing a medically appropriate examination, independently interpreting results (not separately reported) and communicating results to the patient/family/caregiver. Bobbi George PA-C [facility] 11-01-2021 Instructions Bobbi George PA-C - 11/01/2021 10:26 AM EDT -Your random biopsies returned as normal colon tissue, no evidence of colitis -Recommend fiber and probiotic to help regulate stools -Follow up if symptoms worsen or persist The following instructions are important for you related to your office visit today with the [facility]. INSTRUCTIONS FOR DIVERTICULA I recommend that you continue on a high-fiber diet. Avoidance of seeds is not necessary in general. Recent studies have demonstrated that seeds do not increase you risk of developing diverticulitis. If specific foods tend to cause discomfort, those should be avoided. Signs of diverticulitis (inflammation of diverticulosis) include - abdominal distention, fever, abdominal pain typically in the left lower quadrant, and changes of bowel habits. If these symptoms appear, you are instructed to contact our office immediately. If you note any additional difficulties or concerns, you should contact our office immediately. If you note any additional difficulties, questions, or concerns, you should contact our office immediately @ [phone] and ask to be transferred to the General Surgery department. documented in this encounter [facility] 11-01-2021 History of Presen t illness Narrative FOLLOW UP VISIT - ENDOSCOPY NAME: [facility] NO.: [id number] DATE OF SERVICE: 11/01/2021 : 1945 REFERRING PHYSICIAN: Abdulaziz Caba MD Benoit is a patient I am following for screening colonoscopy and recent loose stools. Dr. Sheikh performed lower endoscopy on 10/25/21. The patient was found to have diverticulosis with otherwise normal-appearing colon. Random biopsies were taken. Pathology demonstrated: FINAL DIAGNOSIS A. Ascending colon, biopsy: - No significant pathologic change. - No evidence of lymphocytic or collagenous colitis. B. Descending colon, biopsy: - No significant pathologic change. - No evidence of lymphocytic or collagenous colitis. G/beckie 10/26/2021 The patient notes no complaints since the procedure. He states the loose stools are intermittent and primarily aggravated with certain foods such as dairy and salads. States symptoms are not really bothering him currently and had normal BM this morning. VITALS: Blood pressure 132/72, pulse 83, temperature 36.7 C (98.1 F), height 165.1 cm (5' 5), weight 78 kg (172 lb), SpO2 98 %. General: patient is alert, cooperative, pleasant and in no acute distress On examination, the abdomen is benign. Assessment IMPRESSION: s/p colonoscopy, intermittent loose stools, normal biopsies PLAN: The operative findings and pathology report were reviewed with the patient, and the patient has had the opportunity to ask questions and have questions answered. If the patient notes any problems or changes in bowel function, the patient should contact me immediately. Otherwise I recommend follow up endoscopy in 10 years. HM updated and recall letter generated. Patient verbalized understanding of all above and agreed with the plan Diagnoses: (K57.90) Diverticulosis (primary encounter diagnosis) (R19.5) Loose stools I spent a total of 23 minutes on the date of the service which included preparing to see the patient, [id number] patient care, completing clinical documentation, obtaining and/or reviewing separately obtained history, performing a medically appropriate examination, independently interpreting results (not separately reported) and communicating results to the patient/family/caregiver. Bobbi George PA-C documented in this encounter [facility] 10-25-2021 Note HNO ID: [id number] Author: Susan Mcleod RN Service: ? Author Type: Registered Nurse Type: Nursing Progress Note Filed: 10/25/2021 12:09 PM Note Text: Abdomen soft non-distended. Will continue to monitor. [facility] 10-25-2021 Nurse Note Abdomen soft non-distended. Will continue to monitor. documented in this encounter [facility] 10-25-2021 History and physical note PROCEDURAL SEDATION HISTORY AND PHYSICAL EXAM SERVICE DATE: 10/25/2021 SERVICE TIME: 11:14 AM Subjective HPI: This is a 76 year old male who presents for screening colonoscopy - HE now notes diarrhea/loose stools 4-5 times a week. His colonoscopy was normal in 2011 PAST ANESTHESIA HISTORY: No history of adverse event PAST MEDICAL HISTORY Diagnosis Date Arthritis Diabetes mellitus Type 2 Diabetic retinopathy (HCC) Hypercholesterolemia Hypertension Nummular eczema PAST SURGICAL HISTORY Procedure Laterality Date COLONOSCOPY FLX DX W/COLLJ SPEC WHEN PFRMD 09/05/2011 normal 10 year follow up EYE SURGERY HX FOREIGN BODY - EYE PERIODONTAL MAINTENANCE REMV CATARACT EXTRACAP,INSERT LENS Right 2015 Prior to Admission medications as of 10/25/21 0949 Medication Sig Last Dose Taking metFORMIN ER (FORTAMET) 1,000 mg 24 hr tablet Take 1,000 mg by mouth twice daily before meals. 10/24/2021 at Unknown time Yes glimepiride (AMARYL) 4 mg tablet Take 4 mg by mouth twice daily with meals. 10/24/2021 at Unknown time Yes betamethasone dipropionate (DIPROSONE) 0.05 % cream Apply to affected area as needed. 10/02/2021 Fluorouracil 0.5 % cream Apply to affected area as needed. Unknown at Unknown time VITAMIN E ACETATE ORAL Take 1 capsule by mouth twice daily. 10/02/2021 cyanocobalamin (VITAMIN B-12) 1,000 mcg tab Take 1,000 mcg by mouth once daily. 10/20/2021 ascorbic acid, vitamin C, (VITAMIN C) 500 mg tablet Take 500 mg by mouth once daily. 10/20/2021 amLODIPine (NORVASC) 5 mg ORAL tablet Take 1 tablet by mouth once daily. metFORMIN 500 mg ORAL tablet Take 1 tablet by mouth twice daily. glimepiride (AMARYL) 4 mg ORAL tablet Take 1 tablet by mouth once daily. rosuvastatin (CRESTOR) 5 mg ORAL tablet Take 1 tablet by mouth daily at bedtime. aspirin, enteric coated 325 mg ORAL EC tablet Take 1 tablet by mouth once daily. ALLERGIES Allergen Reactions Seasonal Allergies Other: See Comments Objective PHYSICAL EXAM: GENERAL: Alert, no distress, cooperative EYES: PERRLA, EOMI OROPHARYNX: Lips, mucosa, and tongue normal. Teeth and gums normal. Oropharynx normal. ABDOMEN: Abdomen soft, non-tender, BS normal, No masses or organomegaly AIRWAY: Airway Visualization of Uvula: Yes Mouth opening greater than 2 fingerbreadths: Yes Neck Full Range of Motion: Yes LUNGS: Lungs clear to auscultation CARDIAC: Regular rhythm,Regular rate Assessment/Plan ASA Class: ASA Class:: Patient with mild systemic disease Active Problems: * No active hospital problems. * Resolved Problems: * No resolved hospital problems. * Medication and Non-Pharmacologic VTE Prophylaxis/Anticoagulants VTE Prophylaxis: VTE prophylaxis appropriate Provisional Diagnosis/Treatment Plan: SEDATION GOAL: Moderate SIGNATURE: Jose Sheikh MD PATIENT NAME: Benoit Weber DATE: October 25, 2021 TIME: 11:14 AM documented in this encounter [facility] 08-23-2021 Miscellaneous Notes Patient would like prep Golytley sent to the [facility] pharmacy in [place] 10/25/2021 COLON ASC Florencio Called patient to schedule colonoscopy with Dr. Sheikh per Dr. Caba referral in scanned documents. LV to give our office a call back. Florencio is booking until the end of September beginning of October. Last colon was 08/2011 with Florencio Hellen documented in this encounter [facility] Evaluation note No assessment inform ation available [facility] Work Phone: Evaluation note Diagnosis Screening for colon cancer- Primary Special screening for malignant neoplasms, colon [facility] Diagnosis Screening for colon cancer Special screening for malignant neoplasms, colon [facility] Diagnosis Diverticulosis- Primary Diverticulosis of colon (without mention of hemorrhage) Loose stools Abnormal feces [facility] Outpatient Procedure (Routine) - Authorized Specialty Diagnoses / Procedures Referred By Cristy marcum Referred To Contact [facility] Diagnoses Screening for colon cancer Procedures COLONOSCOPY SCREENING COLONOSCOPY FLX DX W/COLLJ SPEC WHEN PFRMD Florencio, Jose T, MD [address] [place] [address] [address] Referral ID Status Reason Start Date Expiration Date Visits Requested Visits Authorized [id number] Authorized Auto-Generat ed Referral 08/24/2021 08/19/2022 1 1 T [facility] for referral (narrative)* Outpatient Procedure (Routine) - Closed Specialty Diagnoses / Procedures Referred By Cristy marcum Referred To Contact [facility] Diagnoses Screening for colon cancer Procedures COLONOSCOPY SCREENING COLONOSCOPY FLX DX W/COLLJ SPEC WHEN Jose Barragan MD [address] [facility] [place] [address] [address] Referral ID Status Reason Start Date Expiration Date V isits Requested Visits Authorized [id number] Closed Auto-Generate d Referral 08/24/2021 08/19/2022 1 1 T [facility] for visit Narrative* Outpatient Procedure (Routine) - Closed Specialty Diagnoses / Procedures Referred By Cristy marcum Referred To Contact [facility] Diagnoses Screening for colon cancer Procedures COLONOSCOPY SCREENING COLONOSCOPY FLX DX W/COLLJ SPEC WHEN Jose Barragan MD [address] [place] [address] [address] Referral ID Status Reason Start Date Expiration Date V isits Requested Visits Authorized [id number] Closed Auto-Generate d Referral 08/24/2021 08/19/2022 1 1 [facility] Advance Directives No Advanced Directives Records FoundDocuments on File Type Date Recorded 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 Advance Directive(s) 09/07/2011 9:12 AM Documents on File Type Date Recorded 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 Advance Directive(s) 10/25/2021 9:40 AM Advance Directive(s) 09/28/2021 12:07 PM Advance Directive(s) 09/22/2021 5:55 PM Advance Directive(s) 09/07/2011 9:12 AM Documents on File Type Date Recorded 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 Advance Directive(s) 10/25/2021 9:40 AM Advance Directive(s) 09/28/2021 12:07 PM Advance Directive(s) 09/22/2021 5:55 PM Advance Directive(s) 09/07/2011 9:12 AM Medications Administered Section Inactive Administered Medications - up to 3 most recent administrations Medication Order MAR Action Action Date Dose Rate Site fentaNYL 50 mcg/mL 25-100 mcg injection (SUBLIMAZE) 25-100 mcg, INTRAVENOUS, DIRECTED, Starting on Sun10/25/21 at 1130, Until Sun10/25/21 at 1529, DOSING DIRECTED BY PHYSICIAN FOR PROCEDURAL SEDATION ONLY, Intraprocedure Given 10/25/2021 11:30 AM EDT 50 mcg lactated ringers iv infusion 30 mL/hr, INTRAVENOUS, CONTINUOUS, Starting on Sun10/25/21 at 1000, Until Sun10/25/21 at 1159, Preprocedure New Bag/Syringe/Kina le 10/25/2021 10:25 AM EDT 30 mL/hr 30 mL/hr Arm, Right midazolam (PF) 1-5 mg injection (VERSED) 1-5 mg, INTRAVENOUS, DIRECTED, Starting on Sun10/25/21 at 1130, Until Sun10/25/21 at 1529, DOSING DIRECTED BY PHYSICIAN FOR PROCEDURAL SEDATION ONLY, Intraprocedure Given 10/25/2021 11:30 AM EDT 3 mg Summary Purpose Family History No Family History Records FoundNo Family History Records Found Additional Source Comments Goals (unrecognized section and content) Goals may be documented in a n alternate sectionGoals may be documented in an alternate sectionGoals may be documented in an alternate sectionGoals may be documented in an alternate section Source Comments (unrecognize d section and content) In the event this informatio n is protected by the Federal Confidentiality of Alcohol and Drug Abuse Patient Records regulations: The Federal rules restrict any use of the information to criminally investigate or prosecute any alcohol or drug abuse patient.[facility] the event this information is protected by the Federal Confidentiality of Alcohol and Drug Abuse Patient Records regulations: The Federal rules restrict any use of the information to criminally investigate or prosecute any alcohol or drug abuse patient.[facility] the event this information is protected by the Federal Confidentiality of Alcohol and Drug Abuse Patient Records regulations: The Federal rules restrict any use of the information to criminally investigate or prosecute any alcohol or drug abuse patient.[facility] Reason for Visit (unrecogniz ed section and content) Reason Comments 10/25/2021 COLON ASC Reason Comments Follow Up colonoscopy Care Teams (unrecognized sec tion and content) Safety Compliance Specialist Relationship Specialty Start Date End Date Abdulaziz Caba MD [address], [place] [id number] PCP - General Family Practice 08/19/21 Safety Compliance Specialist Relationship Specialty Start Date End Date Abdulaziz Caba MD [address] [facility] [place], [place] [address] PCP - General Family Practice 08/19/21 Safety Compliance Specialist Relationship Specialty Start Date End Date Abdulaziz Caba MD [address] [place] [address] PCP - General Family Practice 08/19/21 Team Status: Active Member Role Status Dates Dr. Rob Caba MD Family Provider Active Dr. Rob Caba MD Primary Care Provider Activ e Team Status: Inactive Member Role Status Dates Dr. Rob Caba MD Primary Care Provider, Attending Provider, Referring Provider Active Team Status: Inactive Member Role Status Dates Dr. Rob Caba MD Primary Care Provider, Atte nding Provider Active Team Status: Active Member Role Status Dates Dr. Abdulaziz Caba MD Family Provider Active Dr. Abdulaziz Caba MD Primary Care Provider Acti ve Team Status: Inactive Member Role Status Dates Dr. Abdulaziz Caba MD Primary Care Provider, Att ending Provider Active (unrecognized sect ion and content) No Status Records FoundNo Status Records Found INFORMATION SOURCE (unrecogn ized section and content) DATE CREATED AUTHOR 11/02/2021 [facility] DATE CREATED AUTHOR AUTHOR'S ORGANIZ ATION 10/22/2024 [facility] FOR RECORDS PERTAINING TO PATIENTS WHO ARE OR HAVE BEEN ENROLLED IN A CHEMICAL DEPENDENCY/SUBSTANCEABUSE PROGRAM, SOME INFORMATION MAY BE OMITTED. This clinical summary was aggregated from multiple sources. Caution should be exercised in using it in the provision of clinical care. This summary normalizes information from multiple sources, and as a consequence, information in this document may materially change the coding, format and clinical context of patient data. In addition, data may be omitted in some cases. CLINICAL DECISIONS SHOULD BE BASED ON THE PRIMARY CLINICAL RECORDS. [employer] provides no warranty or guarantee of the accuracy or completeness of information in this document.
== END | disposition home or self-care (01) ==
LOC: LABSPEC 04-01 11:49
PROVIDERS: PCP Family Medicine; Referring Provider Family Medicine; Visit Provider Family Medicine
DX: Z00.00 Encounter for general adult medical examination without abnormal findings (principal); E11.319 Type 2 diabetes mellitus with unspecified diabetic retinopathy without macular edema
CPT/HCPCS: 82043; 82570

== ENCOUNTER → 2025-05-06 | Outpatient (CLI) | payer MEDICARE, SELFPAY ==
[2025-05-06 11:04] LABS: AST(SGOT) 18 U/L (<=37); Alanine Aminotransfer ALT/SGPT 17 U/L (<=46); Albumin, Serum 4.4 g/dL (3.4-4.8); Alkaline Phosphatase 65 U/L (40-129); Anion Gap 13 (5-15); BUN 11 mg/dL (4-19); BUN/Creat Ratio 12.0 RATIO (10-20); Calcium,Total 9.5 mg/dL (7.6-11.0); Carbon Dioxide 24.6 mmol/L (21.0-32.0); Chloride 104 mmol/L (98-108); Cholesterol 195 mg/dL (<=200); Globulin 3.0 g/dL (2.2-4.2); Glucose 180 mg/dL (70-99); Low Density Lipoprotein Calc. 115 mg/dL; PSA,Total- Diagnostic 4.01 ng/mL (0.00-4.00); Potassium 4.1 mmol/L (3.3-5.1); Triglycerides 178 mg/dL; Very Low Density Lipoprotein 36 mg/dL (5-40); Vitamin B12 589 pg/mL (180-914); cholesterol:hdl ratio screen 4.04
== END | disposition home or self-care (01) ==
LOC: MFPLAB 08:23
PROVIDERS: PCP Family Medicine; Visit Provider Family Medicine
DX: E11.9 Type 2 diabetes mellitus without complications (principal); R97.20 Elevated prostate specific antigen [PSA]
CPT/HCPCS: 36415; 80053; 80061; 82607; 84153; 84443